=== PATIENT | male | born 1940 | race Caucasian/White ===

== ENCOUNTER → 2020-11-15 08:41 | Outpatient (REF) | payer MEDICARE, SELFPAY ==
--- NOTE | ~2020-11-15 | NM_ITS ---
Exercise Myocardial perfusion study Indication: Shortness of breath evaluate for myocardial ischemia Technique: The patient was brought in for an exercise perfusion study on 11/15/2020. Patient performed exercise as per Feng protocol and was injected 35 mCi of sestamibi was given intravenously one target HR was achieved. Images were obtained using the SPECT gamma camera interlaced with the gating device. Images were obtained in supine position. Resting perfusion study was performed on 11/16/2020. Patient was administered 35 mCi of sestamibi intravenously at rest. Images were then obtained in supine position. Images obtained with and without CT attenuation. Total DLP 105mGy-cm. Images were processed with the software and compared side to side in short axis, horizontal long axis and vertical long axis views. Findings: The stress perfusion study showed nonattenuated images show mildly reduced uptake in the inferior and apical wall of the LV myocardium. Also mildly reduced uptake in the basal inferolateral wall of the LV myocardium remainder of the LV myocardium is normally perfused. Moderately reduced uptake in the apex of the LV myocardium.. The gated study shows normal LV systolic function with calculated LVEF of 50%. LV cavity is mildly dilated in size. The gated study shows normal systolic wall thickening and contraction of all segments. There is no transient ischemic dilation. Resting study shows no change in perfusion pattern compared to stress perfusion study. Gating at rest reveals normal systolic wall motion with ejection fraction at 50%. The findings are consistent with no reversible defect suggestive of ischemia.. NM/NM katarina perf SPECT rest & str Impression: 1. Normal myocardial perfusion 2. Gated LVEF is 50% 3. Transient ischemic dilatation not present Stress EKG is negative for ischemia
--- NOTE | 2020-11-15 08:48 | CA_ITS ---
Acquisition Time: 2020-11-15 09:04:21 Total Exercise Time: 00:06:33 Test Indications: SOB, PVC'S Medications: SEE CHART Protocol: HERNESTO Max HR: 126 BPM 90% of Pred: 140 BPM Max BP: 148/080 mmHG Max Work Load: 7.8 METS Exercise stress test with exercise 6 min 33 sec of Hernesto protocol, with mild sob, no chest discomfort or dizziness, with frequent isolated PVCs ( 2 morphologies), occassional ventricular cuplets, with mild drop in BP with exercise baseline BP 146/78, stage one 134/78, stage two 126/80, immediate recovery 124/89, 3 min recovery 130/80), without EKG changes meeting criteria for ischemia. Nuclear images pending. Test reviewed with Dr Mallory. Referred By: Elian Rader Overread By: JESUS ALBERTO CANDELARIO
== END ==
LOC: HO.CARD 08:41
PROVIDERS: Visit Provider Physician Assistant Medical
DX: R06.02 Shortness of breath (principal)
CPT/HCPCS: 78452; 93017; A9500

== ENCOUNTER 2020-12-01 11:15 | Outpatient (REF) | payer MEDICARE, SELFPAY ==
--- NOTE | ~2020-12-01 | CT_ITS ---
EXAMINATION: CT CHEST WITHOUT CONTRAST CLINICAL INFORMATION: Dilated ascending aorta. COMPARISON: None. TECHNIQUE: Multidetector volumetric CT imaging of the chest was done. Axial MIP volume rendering provided. Sagittal and coronal reformatted images were obtained. This CT examination was performed using dose optimization techniques as appropriate, variously including the following: *Automated exposure control *Adjustment of mA and/or kV according to patient size (this includes techniques or standardized protocols for targeted exams where dose is matched to indication/reason for exam; i.e. extremities or head) *Use of iterative reconstruction technique DLP: 215 mGy-cm. FINDINGS: DIRECTOR OF SUSTAINABILITY: Emphysematous. LUNGS: There is a 2 mm nodule right upper lobe axial image 142/4, subpleural right upper lobe 1 mm nodule axial image 148/4 noncalcified, subpleural, a 3 mm nodule in the lingula axial image 342/4, a 6 mm linear subpleural nodule right middle lobe axial image 386/4, likely focal atelectasis or interstitial thickening. MEDIASTINUM: The thyroid lobes are symmetrical and normal. The central trachea and the bronchi widely patent. Heart size is normal. The thoracic aorta is of normal caliber. There are coronary artery calcifications. No pericardial effusion seen. No abnormal-sized mediastinal lymph nodes or mass. PLEURA: There is no pleural effusion. No pleural mass or thickening. AXILLA: No lymphadenopathy. UPPER ABDOMEN: Visualized liver, spleen, bilateral adrenal glands appear unremarkable. There is a moderate-sized 3.7 cm cyst upper pole left kidney. OSSEOUS STRUCTURES: There is no lytic or sclerotic process seen. There is a calcified disc at the T7-T8 disc level. CT/CT chest wo con IMPRESSION: No evidence of aortic aneurysm. There are coronary artery calcifications present. Small 3 mm lung nodules. Recommend 1-year follow-up.
== END 2020-12-01 11:16 | disposition home or self-care (01) ==
LOC: HO.CT 11:15
PROVIDERS: Visit Provider Physician Assistant Medical
DX: I77.810 Thoracic aortic ectasia (principal); I25.10 Atherosclerotic heart disease of native coronary artery without angina pectoris
CPT/HCPCS: 71250

== ENCOUNTER → 2021-01-18 09:44 | Outpatient (BNVA) | payer MEDICARE, SELFPAY | PROVIDERS: PCP Internal Medicine Geriatric Medicine; Visit Provider Urology | DX: N40.1 Benign prostatic hyperplasia with lower urinary tract symptoms (principal); R33.8 Other retention of urine; R31.29 Other microscopic hematuria | CPT/HCPCS: 51798; 99212 ==

== ENCOUNTER 2022-01-15 10:17 | Outpatient (REF) | payer MEDICARE, SELFPAY ==
[2022-01-15 11:39] LABS: Prostate Specific Antigen 3.68 ng/mL (<0.05-4.0)
== END 2022-01-15 10:18 | disposition home or self-care (01) ==
LOC: HO.LAB 10:17
PROVIDERS: PCP Internal Medicine Geriatric Medicine; Visit Provider Urology
DX: Z12.5 Encounter for screening for malignant neoplasm of prostate (principal); R33.9 Retention of urine, unspecified; N40.1 Benign prostatic hyperplasia with lower urinary tract symptoms; N13.8 Other obstructive and reflux uropathy
CPT/HCPCS: 36415; 84153

== ENCOUNTER → 2022-01-18 11:14 | Outpatient (BNVA) | payer MEDICARE, SELFPAY | PROVIDERS: PCP Internal Medicine Geriatric Medicine; Visit Provider Urology | DX: N40.1 Benign prostatic hyperplasia with lower urinary tract symptoms (principal); R33.9 Retention of urine, unspecified; R31.29 Other microscopic hematuria | CPT/HCPCS: Q3014 ==

== ENCOUNTER 2022-10-04 08:00 | Outpatient (REF) | payer MEDICARE, SELFPAY ==
[2022-10-04 12:59] LABS: TSH reflex Free T4 1.32 uIU/mL (0.32-4.0)
== END 2022-10-04 08:01 | disposition home or self-care (01) ==
LOC: HO.HHCL 08:00
PROVIDERS: Visit Provider Internal Medicine Geriatric Medicine
DX: R53.83 Other fatigue (principal); G72.0 Drug-induced myopathy; T46.6X5A Adverse effect of antihyperlipidemic and antiarteriosclerotic drugs, initial encounter
CPT/HCPCS: 36415; 82306; 82550; 84443

== ENCOUNTER 2023-01-15 09:52 | Outpatient (REF) | payer MEDICARE, SELFPAY ==
[2023-01-15 12:31] LABS: Prostate Specific Antigen 1.99 ng/mL (<0.05-4.0)
== END 2023-01-15 09:53 | disposition home or self-care (01) ==
LOC: HO.WFDLDS 09:52
PROVIDERS: Visit Provider Urology
DX: Z12.5 Encounter for screening for malignant neoplasm of prostate (principal); N40.0 Benign prostatic hyperplasia without lower urinary tract symptoms
CPT/HCPCS: 36415; 84153

== ENCOUNTER 2023-01-18 11:38 | Outpatient (AMB) | payer MEDICARE, SELFPAY ==
--- NOTE | 2023-01-18 11:38 | A.OFFVIS_ITS ---
Intake Intake Visit Reasons: 1Y PSA(set) Intake Note: Patient is Present for Telephone Follow Up PSA Urology Med: Finasteride, Antibiotic Allergy: None Blood Thinner: Aspirin Allergies No Known Allergies Allergy (Verified 01/18/23 11:39) Medication List - Last Reconciled 01/18/23 by Francis Lyons MD amoxicillin-pot clavulanate 875-125 mg 1 tab PO Q12H 10 days aspirin 81 mg PO DAILY atorvastatin 40 mg PO DAILY ciprofloxacin-dexamethasone 0.3-0.1 % (Ciprodex) 4 drps otic (ears) Q12H 7 days erythromycin 0.5 inches ophthalmic (eye) BID 7 days finasteride 5 mg PO DAILY 90 days lisinopril 40 mg PO DAILY omega-3 fatty acids (Fish Oil Concentrate) 1,000 mg PO DAILY omeprazole 20 mg PO DAILY prednisone 40 mg (2 x 20 mg) PO DAILY 7 days valacyclovir 1,000 mg PO Q8H 7 days verapamil ER 240 mg PO DAILY HPI HPI Comments History of Present Illness Details Alvin PATEL is a very pleasant male. He is a patient of Dr Cramer. He is seen today for the following urologic conditions. - lower urinary tract symptoms - microscopic hematuria Telemedicine Evaluation 15 min Consultation [employer] attempted PSA dropped when back on finasteride daily Urination improved with nocturia 1-2 times Good emptying Twelve month follow-up Lower Urinary Tract Symptoms:? Urinary parameters stable Had stopped finasteride Low PVR ? Current visit is for?further evaluation of, lower urinary tract symptoms, predominate obstructive symptoms.? Current treatment includes?5-AR.? Prostate Symptom Score?07/26 , Mild (0-8), Bother 3.? Symptoms include?07/26 , nocturia (>2), weak stream, and are improving.? Results from testing include? renal/bladder us ?Yes ? date ?08/15/2017 ? prostate size ?85 ? PSA?07/27 1.8, 01/30 3.7, 01/31 2.0 ? Prostate volume?- KAROLYN 3+ soft ? Testing at next visit will include?PSA Microscopic Hematuria:? Microscopic hematuria was diagnosed during?routine UA.? No evidence on UA today ? Since the last visit the patient has?has not noticed gross hematuria, does not test positive for microscopic hematuria.? Relevant medical history for?no pertinent medical history, no workplace exposures, tobacco use.? Associated symptoms include? dysuria ?No ? frequency ?No ? urgency ?No ? decreased urinary stream ?No ? pain ?No ? nausea ?No ? weight loss ?No ? Radiographic imaging:?04/28 , US renal right renal cyst, prostate 85cc.? Other investigations?04/28 , cytology, normal.? Cystoscopy findings?04/28 BPH with neovascularity.? Therapeutic plan?follow in 12 months with appropriate investigations PFSH Medical History BPH (benign prostatic hyperplasia) Hyperlipidemia Sleep apnea HTN (hypertension) Family History Mother Diabetes Social History Household Members: Spouse and Children Housing: House Alcohol intake: former Patient Tobacco Use Status: Never used Tobacco service: No Current occupational status: retired Review of Systems Const All systems reviewed & are unremarkable except as noted in HPI and below Reports no additional complaints Resp Reports no additional complaints GI Reports no additional complaints Reports as per HPI Musc Reports no additional complaints Physical Exam Telemedicine evaluation Appropriate responses Regular breathing rate and rhythm HEENT Head: Yes normal to inspection Ears: hearing grossly normal bilaterally Eyes General: appearance normal, both eyes and all related structures Neck Neck: Yes normal visual inspection Chest Chest palpation & inspection: normal inspection of the chest Resp Effort & Inspection: normal respiratory effort and able to speak in complete sentences Assessment & Plan Assessment & Plan (1) Microscopic hematuria: Code(s): R31.29 - Other microscopic hematuria (2) Incomplete emptying of bladder due to benign prostatic hyperplasia: Code(s): N40.1 - Benign prostatic hyperplasia with lower urinary tract symptoms; R33.9 - Retention of urine, unspecified (3) BPH (benign prostatic hyperplasia): Code(s): N40.0 - Benign prostatic hyperplasia without lower urinary tract symptoms Plan Twelve month follow-up Orders: Orders Prostate Specific Antigen 01/15/23 N40.0 - Benign prostatic hyperplasia without lower urinary tract symptoms Prostate Specific Antigen 364 Days N40.0 - Benign prostatic hyperplasia without lower urinary tract symptoms Medications: Refilled finasteride 5 mg PO DAILY 90 tabs 3RF 90 days N40.0 - Benign prostatic hyperplasia without lower urinary tract symptoms Patient Instructions: Imaging studies, laboratory and physical exam results were discussed and reviewed in detail. No major barriers to patient understanding were identified. An opportunity to ask questions regarding the treatment plan was provided. All questions were answered. The patient expressed understanding and agreement with the above treatment plan. The patient is aware they should contact our office by phone for worsening of their current condition or the appearance of new urologic symptoms. Compliance is encouraged with any medications and followup testing that is ordered. It is a privilege to participate in the urologic care of your patient. If you have any questions or concerns regarding treatment for the above conditions, or other urologic issues, please do not hesitate to contact me. The office telephone contact is [phone]. This note is constructed using voice recognition software. While every effort has been made to ensure accuracy security strategist errors may have been included. Yours sincerely, Dr Francis Lyons MD, [facility] - Urology Providers of Expert, Compassionate Care for the Genitourinary System Telehealth Telehealth Location of provider rendering services: practice address Location of patient: address on file Patient Identification confirmed using: Name, : Yes Telehealth method: video Patient verbally consented to treatment: Yes Patient verbally consented to billing insurance company: Yes Patient informed of any privacy concerns related to visit: Yes Coding Level of Care Code Tele Est Pt Level 4 (59540) Diagnoses Microscopic hematuria R31.29 Incomplete emptying of bladder due to benign prostatic hyperplasia N40.1; R33.9 BPH (benign prostatic hyperplasia) N40.0
== END 2023-01-18 12:25 ==
LOC: HO.HUSH 11:38
PROVIDERS: PCP Internal Medicine Geriatric Medicine; Visit Provider Urology
DX: R31.29 Other microscopic hematuria (principal); N40.1 Benign prostatic hyperplasia with lower urinary tract symptoms; R33.9 Retention of urine, unspecified; N40.0 Benign prostatic hyperplasia without lower urinary tract symptoms
CPT/HCPCS: 99214

== ENCOUNTER → 2023-01-18 11:38 | Outpatient (BNVA) | payer MEDICARE, SELFPAY | PROVIDERS: PCP Internal Medicine Geriatric Medicine; Visit Provider Urology | DX: N40.0 Benign prostatic hyperplasia without lower urinary tract symptoms (principal) ==

== ENCOUNTER 2023-04-29 09:33 | Outpatient (REF) | payer MEDICARE, SELFPAY ==
[2023-04-29 11:00] LABS: MANUAL DIFF FLAG NO
[2023-04-29 11:11] LABS: Basophils Percent Auto 0.6 % (0-2); Eosinophils Absolute Auto 0.2 X10*3/uL (0.0-0.4); Eosinophils Percent Auto 3.9 % (0-4); Hematocrit 44.7 % (42.0-52.0); Hemoglobin 15.4 g/dl (14.0-18.0); Imm Gran Abs Auto 0.01 X10*3/uL (0.00-0.03); Imm Gran Pct Auto 0.2 % (0.0-0.4); Lymphocytes Absolute Auto 2.6 X10*3/uL (1.2-4.9); Lymphocytes Percent Auto 53.8 % (20-40); Mean Corpuscular HGB Conc 34.5 g/dl (31.0-36.0); Mean Corpuscular Hemoglobin 30.8 pg (27.0-33.0); Mean Corpuscular Volume 89.4 fL (80.0-98.0); Mean Platelet Volume 9.6 fL (9.4-12.4); Monocytes Absolute Auto 0.4 X10*3/uL (0.1-1.2); Monocytes Percent Auto 7.2 % (2-11); Neutrophils Absolute Auto 1.7 x10*3/uL (2.0-8.3); Neutrophils Percent Auto 34.3 % (45-73); Platelet Count 147 X10*3/uL (160-400); Red Cell Distribution Width 12.9 % (11.0-16.0); White Blood Count 4.9 X10*3/uL (4.8-10.8)
[2023-04-29 11:47] LABS: Alanine Aminotransferase 16 U/L (0-40); Albumin Level 3.8 g/dL (3.5-5.0); Alkaline Phosphatase 46 U/L (39-117); Anion Gap 11 (12-20); Aspartate Amino Transferase 18 U/L (5-37); Bilirubin Total 0.8 mg/dL (0.0-1.0); Blood Urea Nitrogen 24 mg/dL (9-16); Calcium 9.3 mg/dL (8.4-10.2); Carbon Dioxide 27 mmol/L (22-29); Chloride 106 mmol/L (96-108); Cholesterol 134 mg/dL (<200); Estimated Glomerular Filt Rate > 60; Glucose Random 107 mg/dL (60-115); HDL Cholesterol 31 mg/dL (>40); LDL Cholesterol Calculated 67 mg/dL (<100); Potassium 3.9 mmol/L (3.3-5.1); Sodium 140 mmol/L (135-145); Total Protein 6.9 g/dL (6.5-8.0); Triglycerides 181 mg/dL (<150)
== END 2023-04-29 09:34 | disposition home or self-care (01) ==
LOC: HO.WFDLDS 09:33
PROVIDERS: Visit Provider Internal Medicine Geriatric Medicine
DX: I25.118 Atherosclerotic heart disease of native coronary artery with other forms of angina pectoris (principal); I10 Essential (primary) hypertension
CPT/HCPCS: 36415; 80053; 80061; 85025

== ENCOUNTER 2025-02-22 09:55 | Outpatient (REF) | payer MEDICARE, SELFPAY ==
[2025-02-22 11:10] LABS: MANUAL DIFF FLAG NO
[2025-02-22 11:22] LABS: Hematocrit 44.6 % (42.0-52.0); Hemoglobin 14.8 g/dl (14.0-18.0); Imm Gran Abs Auto 0.01 X10*3/uL (0.00-0.03); Imm Gran Pct Auto 0.2 % (0.0-0.4); Lymphocytes Absolute Auto 2.0 X10*3/uL (1.2-4.9); Mean Corpuscular HGB Conc 33.2 g/dl (31.0-36.0); Mean Corpuscular Hemoglobin 30.8 pg (27.0-33.0); Mean Corpuscular Volume 92.9 fL (80.0-98.0); NRBC Abs Auto 0.000 X10*3/uL (0.0-0.012); NRBC Pct Auto 0.0 /100WBC (0.0-0.2); Platelet Count 165 X10*3/uL (160-400); Red Blood Count 4.80 X10*6/uL (4.60-5.80); White Blood Count 4.3 X10*3/uL (4.8-10.8)
[2025-02-22 11:37] LABS: Alanine Aminotransferase 23 U/L (0-40); Albumin Level 4.3 g/dL (3.5-5.0); Alkaline Phosphatase 59 U/L (39-117); Anion Gap 10 (12-20); Aspartate Amino Transferase 28 U/L (5-37); Blood Urea Nitrogen 19 mg/dL (9-16); Calcium 9.6 mg/dL (8.4-10.2); Carbon Dioxide 27 mmol/L (22-29); Chloride 105 mmol/L (96-108); Estimated Glomerular Filt Rate > 60; Potassium 3.8 mmol/L (3.3-5.1); Sodium 138 mmol/L (135-145); Total Protein 7.2 g/dL (6.5-8.0)
== END 2025-02-22 09:56 | disposition home or self-care (01) ==
LOC: HO.HHCL 09:55
PROVIDERS: PCP Internal Medicine Geriatric Medicine; Visit Provider Nurse Practitioner Family
DX: R10.13 Epigastric pain (principal)
CPT/HCPCS: 36415; 80053; 85025

== ENCOUNTER 2025-03-08 09:25 | Outpatient (REF) | payer MEDICARE, SELFPAY ==
--- NOTE | ~2025-03-08 | US_ITS ---
CLINICAL HISTORY: abdominal pain post prandial US abdomen complete Comparison: None provided Findings: The visualized pancreas head is normal. The visualized aorta and inferior vena cava are normal caliber. The liver is normal in size, right lobe length is 16.5 cm. Normal in echogenicity, no discrete lesion is visualized in the imaged liver. No intrahepatic bile duct dilatation. The common duct is 5 mm in diameter. The gallbladder is normal. Negative sonographic Yap sign. The main portal vein is patent with antegrade flow. T bilateral kidneys are normal in size and echogenicity, no cortical thinning, right kidney measures 11.7 cm in length, left kidney 12.6 cm in length. No hydronephrosis or calculus. Bilateral benign renal cysts, 9 mm in the right midpole, 2.5 cm in the left midpole, large lobulated parapelvic cyst left upper interpolar region 9.7 x 4.1 x 4.7 cm, additional smaller cysts 1.2 cm and 0.6 cm in the upper pole. The spleen is normal, 10.3 cm in length. No free fluid in the abdomen. Impression: Bilateral renal benign cysts. This document has been electronically signed by: Mulu Guillen MD on 03/09/2025 16:47:06
--- OUTSIDE RECORDS SUMMARY | 2025-03-08 09:54 | XMS_ITS | Encounter Summary ---
Author Organization [employer] Address [address] [facility] [address] [address] [place] [address] Care Team Providers Care Pressure Vessel Inspector Name Role Phone Name, Basim BOWEN Primary Care Provider [phone] Reason for Visit * Reason Onset Date Comments Med Refill 11/15/2023 Encounter Details Date Type Department Care Team ([facility] st Contact Info) Description 11/15/2023 Telephone [facility] [address] [place] [address] Name, MD Basim [address] [place] [address] Med Refill Social History Tobacco Use Types Packs/Day Years Used Date Smoking Tobacco: Never Smokeless Tobacco: Never Alcohol Use Standard Drinks/Week Comments Never 0 (1 standard drink = 0.6 oz pur e alcohol) Depression Answer Date Recorded Patient Health Questionnaire-9 Score 0 04/24/2023 Patient Health Questionnaire-9 Score 0 04/24/2023 Last PHQ-9: Questionnaire Data Not on file 0 04/24/2023 Housing Stability Answer Date Recorded What is your housing situation today? I have carito morillo 07/17/[address] you li ve. Do you have problems with any of the following? None of the above 07/17/2023 Food Insecurity Answer Date Recorded Within the past 12 months, y ou worried that your food would run out before you got money to buy more: Never True 07/17/2023 Within the past 12 months,th e food you bought just didn't last and you didn't have enough money to get more: Never True 10/2023 Transportation Answer Date Recorded In the past 12 months, has l ack of transportation kept you from medical appts, meetings, work or from getting things needed for daily living? No 07/17/2023 Utilities Answer Date Recorded In the past 12 months, has t he electric, gas, oil or water company threatened to shut off services in your home? No 07/17/2023 Depression Answer Date Recorded Patient Health Questionnaire-2 Score 0 04/24/2023 Sex and Gender Information Value Date Recorded Sex Assigned at Male 01/08/2022 10:30 AM EDT Legal Sex Male 10:30 AM EDT Gender Identity Male 01/08/2022 10:30 AM EDT Sexual Orientation Straight 01/08/2022 10 :30 AM EDT documented as of this encounter Miscellaneous Notes * Telephone Encounter - Davy Freitas - 11/20/2023 8:38 AM EDT Tc from patient calling in regards to message below states was told by pharmacy there was no refills * Telephone Encounter - Rosa M Bonilla LPN - 11/15/2023 4:18 PM EDT Medication was sent to [id number] on 10/11/23 #90 with 3 refills. * Telephone Encounter - Rick Obrien - 11/15/2023 4:16 PM EDT TC from pt requesting medication refill. Medications needing refill: lisinopril 40 MG tablet To be sent to: [id number] - [place], [place] - [address] documented in this encounter Plan of Treatment Upcoming Encounters Date Type Department Care Team (Late st Contact Info) Description 03/18/2025 9:15 AM EST Office Visit [facility] [address] [place] [address] Name, MD Basim [address] [place] [address] documented as of this encounter Visit Diagnoses Not on filedocumented in this encounter Additional Health Concerns Assessment Noted Time PHQ-9 Depression Total Score: 0 04/24/19 24 9:09 AM EST documented as of this encounter Care Teams Pressure Vessel Inspector Relationship Specialty Start Date End Date Name, MD Basim [address] [place] [address] PCP - General Family Medicine 10/04/15 documented as of this encounter
--- OUTSIDE RECORDS SUMMARY | 2025-03-08 09:54 | XMS_ITS | Encounter Summary ---
Author Organization [employer] Address [address] [facility] [address] [place] [address] Care Team Providers Care Rubber Goods Inspector Name Role Phone Name, Basim BOWEN Primary Care Provider [phone] Encounter Details Date Type Department Care Team (Latest Contact Info) Description 03/06/2025 Results Follow-Up [facility] [address] [place], [place] [phone] Raeann Shoemaker NP [address] [place], [place] [phone] CBC auto differential, Comprehensive Metabolic Panel Social History Tobacco Use Types Packs/Day Years Used Date Smoking Tobacco: Never Smokeless Tobacco: Never Alcohol Use Standard Drinks/Week Comments Never 0 (1 standard drink = 0.6 oz pur e alcohol) Depression Answer Date Recorded Patient Health Questionnaire-9 Score 0 02/22/2025 Patient Health Questionnaire-9 Score 0 02/22/2025 Last PHQ-9: Questionnaire Data Not on file 1 04/25/2024 Housing Stability Answer Date Recorded What is your housing situation today? I have carito morillo 02/22/[address] you li ve. Do you have problems with any of the following? None of the above 02/22/2025 Food Insecurity Answer Date Recorded Within the past 12 months, y ou worried that your food would run out before you got money to buy more: Never True 02/22/2025 Within the past 12 months,th e food you bought just didn't last and you didn't have enough money to get more: Never True Transportation Answer Date Recorded In the past 12 months, has l ack of transportation kept you from medical appts, meetings, work or from getting things needed for daily living? No 02/22/2025 Utilities Answer Date Recorded In the past 12 months, has t he electric, gas, oil or water company threatened to shut off services in your home? No 02/22/2025 Depression Answer Date Recorded Patient Health Questionnaire-2 Score 0 02/22/2025 Internet Access Answer Date Recorded Internet Access Q1 Yes 02/22/2025 Internet Access Q2 Not on file 02/22/2025 Sex and Gender Information Value Date Recorded Sex Assigned at Male 01/08/2022 10:30 AM EDT Legal Sex Male 10:30 AM EDT Gender Identity Male 01/08/2022 10:30 AM EDT Sexual Orientation Straight 01/08/2022 10 :30 AM EDT documented as of this encounter Plan of Treatment Upcoming Encounters Date Type Department Care Team (Late st Contact Info) Description 03/18/2025 9:15 AM EST Office Visit [facility] [address] [place] [phone] Name, MD Basim [address] [place] [phone] documented as of this encounter Visit Diagnoses Not on filedocumented in this encounter Additional Health Concerns Assessment Noted Time PHQ-9 Depression Total Score: 0 02/23/20 25 9:43 AM EST documented as of this encounter Care Teams Rubber Goods Inspector Relationship Specialty Start Date End Date NameBasim MD [address] [place] [phone] PCP - General Family Medicine 10/04/15 documented as of this encounter
--- OUTSIDE RECORDS SUMMARY | 2025-03-08 09:54 | XMS_ITS | Encounter Summary ---
Author Organization [employer] [facility] Address [address] [place] [address] 7 [place] [address] Care Team Providers [employer] Solutions Market Consultant Name Role Phone Name, Basim BOWEN Primary Care Provider [phone] Encounter Details Date Type Department Care Team (Late st Contact Info) Description 02/05/2022 Abstract [facility] [address] [place] [phone] Provider, MD Jaquelin Social History Tobacco Use Types Packs/Day Years Used Date Smoking Tobacco: Never Assessed Sex and Gender Information Value Date Recorded Sex Assigned at Male 01/08/2022 10:30 AM EDT Legal Sex Male 10:30 AM EDT Gender Identity Male 01/08/2022 10:30 AM EDT Sexual Orientation Straight 01/08/2022 10 :30 AM EDT documented as of this encounter Plan of Treatment Upcoming Encounters Date Type Department Care Team (Late st Contact Info) Description 03/18/2025 9:15 AM EST Office Visit [address] [phone] NameBasim MD [address] [place] [phone] documented as of this encounter Visit Diagnoses Not on filedocumented in this encounter Care Teams Solutions Market Consultant Relationship Specialty Start Date End Date Basim Cramer MD [address] [place] [phone] PCP - General Family Medicine 10/04/15 documented as of this encounter
--- OUTSIDE RECORDS SUMMARY | 2025-03-08 09:54 | XMS_ITS | Encounter Summary ---
Author Organization [employer] Address [address] [facility] [address] [place] [address] Care Team Providers Care Interventional Neuroradiologist Name Role Phone Name, Basim BOWEN Primary Care Provider [phone] Reason for Visit * Reason Onset Date Comments Appointment Request 12/28/2024 Encounter Details Date Type Department Care Team ([facility] st Contact Info) Description 12/28/2024 Telephone [facility] [address] [place], [place] [phone] Name, MD Basim [address] [place] [address] Appointment Request Social History Tobacco Use Types Packs/Day Years [...] encounter Miscellaneous Notes * Telephone Encounter - Rick Obrien - 12/28/2024 3:23 PM EDT Tc from pt requesting a call back stating pcp was supposed to schedule a 6 month follow up always attends them and their partner together. Please contact pt at [phone]. (Micronesian Speaker) pt 1/2 documented in this encounter Plan of Treatment Upcoming Encounters Date Type Department Care Team (Late st Contact Info) Description 03/18/2025 9:15 AM EST Office Visit [facility] [address] [place] [phone] Name, MD Basim [address] [place] [address] documented as of this encounter Visit Diagnoses Not on filedocumented in this encounter Additional Health Concerns Assessment Noted Time PHQ-9 Depression Total Score: 0 04/24/19 24 9:09 AM EST documented as of this encounter Care Teams Interventional Neuroradiologist Relationship Specialty Start Date End Date Name, MD Basim [address] [place] [phone] PCP - General Family Medicine 10/04/15 documented as of this encounter
--- OUTSIDE RECORDS SUMMARY | 2025-03-08 09:54 | XMS_ITS | Clinical Summary ---
Author Organization [employer] Address [address] [facility] 7t [place] [address] Care Team Providers Care Linux Devops Engineer Name Role Phone Name, Basim BOWEN Primary Care Provider [phone] Allergies No known active allergies Medications cholecalciferol (Vitamin D-3) 25 MCG (1000 UT) capsule Take 25 mcg by mouth 1 (one) time each day. Active omega-3 (Fish Oil) 1000 MG capsule Take 1,000 mg by mouth. Active zoster vaccine-recombin ant adjuvanted (Shingrix) 50 MCG/0.5ML vaccine Inject 0.5 mL into the shoulder, thigh, or buttocks. 1 Active sildenafil (Viagra) 50 MG tablet Take 1 tablet (50 mg) by mouth if needed each day for erectile dysfunction. 10 tablet 3 Active atorvastatin (Lipitor) 40 MG tabletIndication s:Hypertriglycer idemia Take 1 tablet (40 mg) by mouth Once per day. 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 15 tablet 3 5 02/04/20 Active famotidine (Pepcid) 20 MG tablet Take 1 tablet (20 mg) by mouth 2 times daily. 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 Hypertension 05/27/2009 Hypertriglyceridemia 05/27/2009 Resolved Problems Problem Noted Date Diagnosed Date Resolved Date Groin rash 01/27/2022 04/24/2023 Prostatism 07/06/2020 04/24/2023 Dysuria 04/03/2017 04/24/2023 Microscopic hematuria 04/03/20172023 Abnormal stress ECG 05/24/2014 04/24/19 24 Encounters Date Type Department Care Team Description 03/06/2025 Results Follow-Up [facility] [place] [address] Raeann Shoemaker NP CBC auto differential, Comprehensive Metabolic Panel 02/25/2025 9:30 AM EST Office Visit [facility] [place] [address] Almaz Quintero MD Left hip pain (Primary Dx) 02/22/2025 10:00 AM EST Office Visit [facility] [place] [address] Almaz Quintero MD Left hip pain (Primary Dx) 02/22/2025 9:30 AM EST Office Visit [facility] [place] [address] Raeann Shoemaker NP Nausea (Primary Dx); Epigastric pain 02/22/2025 Refill [facility] [place] [address] Raeann Shoemaker NP 02/22/2025 Travel 02/19/2025 Telephone [facility] [place] [address] Basim Cramer MD CHARTPREP 02/09/2025 Telephone [facility] [place] [address] Basim Cramer MD Referral 02/03/2025 Refill [facility] [place] [address] Basim Cramer MD 01/13/2025 Refill [facility] [address] [place] [address] NameBasim MD 12/28/2024 Telephone [facility] [address] [place] [address] NameBasim MD SCHEDULING 12/28/2024 Telephone [facility] [address] [place] [address] Basim Cramer MD Appointment Request 12/23/2024 Refill [facility] [address] [place] [address] NameBasim MD Hypertriglyceridemia from Last 3 Months Immunizations Immunization Administration Dates Next Due Influenza High-dose Quadriva lent Preservative Free 12/28/2022,12/11/2021,12/06/2020,12/30 Influenza, High Dose Seasona l, Preservative Free 01/15/2024,01/22/2018 Influenza, IIV3, injectable 12/06/2020, 0,01/22/2018 Pfizer Covid-19 Vaccine 12+ 01/15/2024,1 ,05/11/2020,04/20 Pfizer Covid-19 Vaccine 12+ Bivalent 02/23/2022 Pneumococcal Conjugate PCV 13 12/31/2016 Pneumococcal Polysaccharide PPSV23 07/04/2009 TD (adult), 2 Lf tetanus tox oid, preservative free, adsorbed 07/04/2009 Td (adult) 07/04/2009 Td (adult), unspecified 07/04/2009 Tdap 12/20/2020 Social History Tobacco Use Types Packs/Day Years Used Date Smoking Tobacco: Never Smokeless Tobacco: Never Tobacco Cessation:Counseling Given: Not Answered Alcohol Use Standard Drinks/Week Comments Never 0 [...] Orientation Straight 01/08/2022 10 :30 AM EDT Last Filed Vital Signs Vital Sign Reading Time Taken Comments Blood Pressure 124/72 02/22/2025 9:32 AM EST Pulse 57 02/22/2025 9:32 AM EST Temperature 36.2 C (97.1 F) 02/22/2025 9:32 AM EST Respiratory Rate 20 02/22/2025 9:32 AM EST Oxygen Saturation 90% 07/03/2024 3:47 PM EDT Inhaled Oxygen Concentration - - Weight 102 kg (224 lb 12.8 oz) 02/22/2025 9:32 A M EST Height 172.7 cm (5' 8 ) 02/22/2025 9:32 AM EST Body Mass Index 34.18 02/22/2025 9:32 AM EST Plan of Treatment Upcoming Encounters Date Type Department Care Team (Late st Contact Info) Description 03/18/2025 9:15 AM EST Office Visit [facility] [address] [place] [phone] Name, MD Basim [address] [place] [address] Health Maintenance Due Date Last Done Comments Dental Prophylaxis 1940 Dental X-Ray: Bitewings 1940 Zoster Vaccines (1 of 2) 1990 RSV Patients and Patients Aged 60 years or older (1 - 1-dose 75+ series) 08/05/2015 Dental Oral Exam 08/22/2023 02/19/2023 COVID-19 Vaccine ( season) 2024 01/15/2024, 02/23/2022, 12/09/2020, Additional history exists Influenza Vaccine (#1) 2024 , 12/28/2022, 12/11/2021, Additional history exists Alcohol/Substance Use Screening 02/22/2026 02/22/2025 Depression Screening 02/22/2026 02/22/2025, 02/23/20 25 SDOH Screening 02/22/2026 02/22/2025 Tobacco Screening 02/22/2026 02/22/2025 Dental X-Ray: Full Mouth 04/09/2026 04/08/2023 Lipid Panel 04/29/2028 04/29/2023, 04/0 08/2022, 07/25/2020, Additional history exists DTaP/Tdap/Td Vaccines (2 - Td or Tdap) 12/20/2030 12/20/2020, 07/04/2009, 07/04/2009, Additional history exists Pneumococcal Vaccine: 50+ Years Completed 12/31/2016, 07/04/2009 HIB Vaccines Aged Out No longer eligi ble based on patient's age to complete this topic HPV Vaccines Aged Out No longer eligi ble based on patient's age to complete this topic Hepatitis A Vaccines Aged Out No long er eligible based on patient's age to complete this topic Hepatitis B Vaccines Aged Out No long er eligible based on patient's age to complete this topic IPV Vaccines Aged Out No longer eligi ble based on patient's age to complete this topic Meningococcal B Vaccine Aged Out No l onger eligible based on patient's age to complete this topic Meningococcal Vaccine Aged Out No monet paul eligible based on patient's age to complete this topic RSV under 20 months Aged Out No longe r eligible based on patient's age to complete this topic Rotavirus Vaccines Aged Out No longer eligible based on patient's age to complete this topic Procedures Procedure Name Priority Date/Time Associated Diagnosis Comments COMPREHENSIVE METABOLIC PANEL Routine 02/22/2025 9:59 AM EST Epigastric pain CBC WITH AUTO DIFFERENTIAL Routine 02/22/2025 9:59 AM EST Epigastric pain LIPID PANEL, STANDARD Routine 04/29/2023 9:37 AM EST Hypertension, unspecified type 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 ([facility]) PANORAMIC RADIOGRAPHIC IMAGE Routine 04/08/2023 11:00 AM EST COMPREHENSIVE ORAL EVALUATION - NEW OR ESTABLISHED PATIENT Routine 02/19/2023 3:00 PM EST from Last 3 Months or Most Recently Relevant to Health Maintenance Results * (ABNORMAL) CBC auto differential (02/22/2025 9:59 AM EST) White Blood Count 4.3(L) 4.8 - 10.8 X10*3/uL [facility] Red Blood Count 4.80 4.60 - 5.80 X10*6/uL [facility] Hemoglobin 14.8 14.0 - 18.0 g/dl [facility] Hematocrit 44.6 42.0 - 52.0 % [facility] Mean Corpuscular Volume 92.9 80.0 - 98.0 fL [facility] Mean Corpuscular Hemoglobin 30.8 27.0 - 33.0 pg [facility] Mean Corpuscular HGB Conc 33.2 31.0 - 36.0 g/dl [facility] Red Cell Distribution Width 12.8 11.0 - 16.0 % [facility] Platelet Count 165 160 - 400 X10*3/uL [facility] Mean Platelet Volume 9.5 9.4 - 12.4 fL [facility] Neutrophils Percent Auto 43.4(L) 45 - 73 % [facility] Imm Gran Pct Auto 0.2 0.0 - 0.4 % [facility] Lymphocytes Percent Auto 46.2(H) 20 - 40 % [facility] Monocytes Percent Auto 6.7 2 - 11 % [facility] Eosinophils Percent Auto 3.0 0 - 4 % [facility] Basophils Percent Auto 0.5 0 - 2 % [facility] NRBC Pct Auto 0.0 0.0 - 0.2 /100WBC [facility] Neutrophils Absolute Auto 1.9(L) 2.0 - 8.3 x10*3/uL [facility] Imm Gran Abs Auto 0.01 0.00 - 0.03 X10*3/uL [facility] Lymphocytes Absolute Auto 2.0 1.2 - 4.9 X10*3/uL [facility] Monocytes Absolute Auto 0.3 0.1 - 1.2 X10*3/uL [facility] Eosinophils Absolute Auto 0.1 0.0 - 0.4 X10*3/uL [facility] Basophils Absolute Auto 0.0 0.0 - 0.2 X10*3/uL [facility] NRBC Abs Auto 0.000 0.0 - 0.012 X10*3/uL [facility] Blood Venous blood specimen / Unknown 02/22/2025 9:59 AM EST 02/22/2025 11:04 AM EST us Raeann Shoemaker NP LAB BLOOD ORDERABLES Final Resul t [facility] [address] [place], [place] [phone] * (ABNORMAL) Comprehensive Metabolic Panel (02/22/2025 9:59 AM EST) Sodium 138 135 - 145 mmol/L [facility] Potassium 3.8 3.3 - 5.1 mmol/L [facility] Chloride 105 96 - 108 mmol/L [facility] Carbon Dioxide 27 22 - 29 mmol/L [facility] Anion Gap 10(L) 12 - 20 [facility] Urea Nitrogen (BUN) 19(H) 9 - 16 mg/dL [facility] Creatinine, Serum 0.96 0.5 - 1.4 mg/dL [facility] Estimated Glomerular Filt Rate >60 [facility] Comment:Chronic Kidney Disea se: Estimated GFR < 60 mL/min/1.64x7Tptkch Kidney Disease: Estimated GFR < 15 mL/min/1.73m2 Glucose 189(H) 60 - 115 mg/dL [facility] Calcium 9.6 8.4 - 10.2 mg/dL [facility] Bilirubin, Total 0.6 0.0 - 1.0 mg/dL [facility] Aspartate Amino Transferase 28 5 - 37 U/L [facility] Alanine Aminotransferase 23 0 - 40 U/L [facility] Total Protein 7.2 6.5 - 8.0 g/dL [facility] Albumin Level 4.3 3.5 - 5.0 g/dL [facility] Alkaline Phosphatase 59 39 - 117 U/L [facility] Blood Venous blood specimen / Unknown 02/22/2025 9:59 AM EST 02/22/2025 11:04 AM EST us Raeann Shoemaker DIRECTOR OF STUDENT FINANCIAL SERVICES LAB BLOOD ORDERABLES Final Resul t [facility] [address] [place] [phone] * (ABNORMAL) Lipid Panel, Standard (04/29/2023 9:37 AM EST) Triglycerides 181(H) <150 mg/dL [facility] Comment:Desirable Triglyceri de: less than 150 mg/dLBorderline High Triglyceride 150-199 mg/dLHigh Triglyceride: 200-499 mg/dLVery High Triglyceride: greater than or equal to 5OO mg/dL Cholesterol 134 <200 mg/dL [facility] Comment:Desirable Cholestero l: less than 200 mg/dLBorderline High Cholesterol: 200-239 mg/dLHigh Cholesterol: greater than 239 mg/dL LDL Cholesterol Calculated 67 <100 mg/dL [facility] Comment:Desirable LDL: less than 100 mg/dLNear Optimal/Above Optimal LDL: 110- 129 mg/dLBorderline High LDL: 130-159 mg/dLHigh LDL: 160-189 mg/dLVery High LDL: greater than or equal to 190 mg/dL HDL Cholesterol 31(L) >40 mg/dL [facility] Comment:Desirable HDL: great er than 40 mg/dL Note: This HDL assay may give artificially low results in patients with liver disease. Blood Venous blood specimen / Unknown 04/29/2023 9:37 AM EST 04/29/2023 10:58 AM EST us Basim Name LAB BLOOD ORDERABLES Final Resul t [facility] [address] [place] [phone] from Last 3 Months or Most Recently Relevant to Health Maintenance Insurance [facility] MEDICARE ADVANTAGE HMO [facility] Care Teams Linux Devops Engineer Relationship Specialty Start Date End Date Name, MD Basim [address] [place] [phone] PCP - General Family Medicine 10/04/15
--- OUTSIDE RECORDS SUMMARY | 2025-03-08 09:54 | XMS_ITS | Clinical Summary ---
Author Organization [facility] Address [address] [place], [place] [phone] Phone Care Team Providers Care Paramedic Name Role Phone Name, Basim BOWEN Primary Care Provider [phone] Social History Tobacco Use Types Packs/Day Years Used Date Smoking Tobacco: Never Assessed Education Answer Date Recorded Are you interested in more education? Not on rafat e 07/06/2022 Are you concerned about learning? Not on file 07/06/2022 No 07/06/2022 No 07/06/2022 Digital Access Answer Date Recorded No 08/06/2022 No 08/06/2022 No 08/06/2022 Reliable internet access at home? Not on file 08/06/2022 Device with a working camera? Not on file Sex and Gender Information Value Date Recorded Sex Assigned at Not on file Legal Sex Male 10:38 PM EDT Gender Identity Not on file Sexual Orientation Not on file Plan of Treatment Not on file Medical Devices Not on file Insurance [facility] MEDICARE REPLACEMENT [facility] MEDICARE [place] [address] [place] [address] [place] [address] [place] [address] [place] [address] MEDICARE REPLACEMENT [facility] MEDICARE REPLACEMENT [facility] MEDICARE REPLACEMENT [facility] MEDICARE REPLACEMENT Care Teams Paramedic Relationship Specialty Start Date End Date Name, MD Basim [address] [place] [phone] PCP - General 11/19/19 Additional Source Comments The information contained in this document represents components of the legal health record. It is not the complete legal health record.[facility]
--- OUTSIDE RECORDS SUMMARY | 2025-03-08 09:54 | XMS_ITS | Encounter Summary ---
Author Organization [employer] Address [address] [facility] [address] [place] [address] Care Team Providers Care Freight Elevator Operator Name Role Phone Name, Basim BOWEN Primary Care Provider [phone] Reason for Visit * Reason Comments Med Refill Encounter Details Date Type Department Care Team ([facility] st Contact Info) Description 12/23/2024 Refill [facility] [address] [place], [place] [phone] Name, MD Basim [address] [place] [address] Hypertriglyceridemia Social History Tobacco Use Types Packs/Day Years [...] Description 03/18/2025 9:15 AM EST Office Visit [facility] [address] [place] [phone] NameBasim MD [address] [place] [phone] documented as of this encounter Visit Diagnoses Diagnosis Hypertriglyceridemia Pure hyperglyceridemia documented in this encounter Additional Health Concerns Assessment Noted Time PHQ-9 Depression Total Score: 0 04/24/19 24 9:09 AM EST documented as of this encounter Care Teams Freight Elevator Operator Relationship Specialty Start Date End Date NameBasim MD [address] [place] [phone] PCP - General Family Medicine 10/04/15 documented as of this encounter
--- OUTSIDE RECORDS SUMMARY | 2025-03-08 09:54 | XMS_ITS | Encounter Summary ---
Author Organization [employer] Address [address] [facility] 7t [place] [address] Care Team Providers Care Operator Prefinish Name Role Phone Name, Basim BOWEN Primary Care Provider [phone] Reason for Visit * Reason Onset Date Comments Med Refill 02/20/2024 Encounter Details Date Type Department Care Team ([facility] st Contact Info) Description 02/20/2024 Telephone [facility] [address] [place], [place] [phone] Name, MD Basim [address] [place] [address] Med Refill Social History Tobacco Use Types [...] encounter Miscellaneous Notes * Telephone Encounter - Madelin Arevalo - 02/26/2024 12:14 PM EST Tc from pt requesting status on med refill request, Pt was inform about last 2 messages but pt states pharmacy does not have any refills. [employer] Carp[employer] M[employer] contact jose and was advices by a pharmacist that they never received script from 10/11/23. * Telephone Encounter - Rosa M Bonilla LPN - 02/20/2024 9:14 AM EST Medication sent to [id number] on 10/11/23 #90 with 3 refills. * Telephone Encounter - Rick Obrien - 02/20/2024 9:03 AM EST TC from pt requesting medication refill. Medications needing refill: atorvastatin (Lipitor) 40 MG tablet To be sent to: [id number] - [place] - [address] documented in this encounter Plan of Treatment Upcoming Encounters Date Type Department Care Team (Late st Contact Info) Description 03/18/2025 9:15 AM EST Office Visit [facility] [address] [place] [address] Name, MD Basim [address] [place] [address] documented as of this encounter Visit Diagnoses Not on filedocumented in this encounter Additional Health Concerns Assessment Noted Time PHQ-9 Depression Total Score: 0 04/24/19 24 9:09 AM EST documented as of this encounter Care Teams Operator Prefinish Relationship Specialty Start Date End Date Name, MD Basim [address] [place] [address] PCP - General Family Medicine 10/04/15 documented as of this encounter
--- OUTSIDE RECORDS SUMMARY | 2025-03-08 09:54 | XMS_ITS | Encounter Summary ---
Author Organization [employer] Address [address] [facility] [address] [place] [address] Care Team Providers Care Ferryboat Operator Helper Name Role Phone Name, Basim BOWEN Primary Care Provider [phone] Reason for Visit * Reason Comments Med Refill Encounter Details Date Type Department Care Team ([facility] Contact Info) Description 02/22/2025 Refill [facility] [address] [place], [place] [phone] Raeann Shoemaker NP [address] [place], [place] [phone] Social History Tobacco Use Types Packs/Day Years [...] Description 03/18/2025 9:15 AM EST Office Visit [facility] [address] [place] [phone] Name, MD Basim [address] [place] [phone] documented as of this encounter Visit Diagnoses Not on filedocumented in this encounter Additional Health Concerns Assessment Noted Time PHQ-9 Depression Total Score: 0 02/23/20 25 9:43 AM EST documented as of this encounter Care Teams Ferryboat Operator Helper Relationship Specialty Start Date End Date NameBasim MD [address] [place] [phone] PCP - General Family Medicine 10/04/15 documented as of this encounter
--- OUTSIDE RECORDS SUMMARY | 2025-03-08 09:54 | XMS_ITS | Encounter Summary ---
Author Organization [facility] Address [address] [facility] [address] [place] [address] Phone Care Team Providers Care Manufacturing Engineering Technologist Name Role Phone Name, Basim BOWEN Primary Care Provider [phone] Encounter Details Date Type Department Care Team (Late st Contact Info) Description 11/19/2019 Ancillary Orders [facility] at [address] [place] [address] Ez Santos, DO [address] [place] [address] Social History Tobacco Use Types Packs/Day Years Used Date Smoking Tobacco: Never Assessed Sex and Gender Information Value Date Recorded Sex Assigned at Not on file Legal Sex Male 10:38 PM EDT Gender Identity Not on file Sexual Orientation Not on file documented as of this encounter Plan of Treatment Not on file documented as of this encounter Visit Diagnoses Not on filedocumented in this encounter Care Teams Manufacturing Engineering Technologist Relationship Specialty Start Date End Date Name, MD Basim [address] [place] [address] PCP - General 11/19/19 documented as of this encounter Additional Source Comments The information contained in this document represents components of the legal health record. It is not the complete legal health record.[facility]
--- OUTSIDE RECORDS SUMMARY | 2025-03-08 09:54 | XMS_ITS | Encounter Summary ---
Author Organization [employer] Address [address] [facility] 7 [place] [address] Care Team Providers Care Casino Floor Walker Name Role Phone Name, Basim BOWEN Primary Care Provider [phone] Reason for Visit * Reason Onset Date Comments Nurse Triage 07/01/2024 Encounter Details Date Type Department Care Team ([facility] st Contact Info) Description 07/01/2024 Telephone [facility] MEDICINE [address] [place], [place] [phone] Name, MD Basim [address] [place] [address] Nurse Triage Social History Tobacco Use Types Packs/Day Years [...] encounter Miscellaneous Notes * Telephone Encounter - Cady Sims RN - 07/01/2024 10:39 AM EDT Triage call with [facility] [place] [id number] Otto Pt reports mild headache for last 2 weeks. Pt reports this headache is located on left side but, has encompassed whole head and eyes at this point. Pt reports the headache comes and goes. Pt has taken tylenol/motrin with some effect to relieve pain. Pt denies fall, head injury. Pt has no other sx of fever, stiff neck, cold sx. Pt would like to see provider. ASK apt with [employer]07/03/24 @ 315pm. Pt agrees with this disposition. Unable to verify health insurance due to computer error. Protocol Used: Headache (Adult) Protocol-Based Disposition: See in Office or Video Visit within 3 Days Video visit not offered Positive Triage Questions: * Mild - Moderate headache present > 3 days (72 hours) * New-onset headache and age > 50 years * All higher-acuity triage questions were negative Care Advice Discussed: * Pain Medicines * Cold Pack for Headache * Reasons To Call Back - Severe headache lasts over 2 hours after pain medicine - Headache lasts over 72 hours - Stiff neck occurs (can't touch chin to chest) - You become worse * Telephone Encounter - Yosef Ruddy - 07/01/2024 9:03 AM EDT Symptom: Headache Outcome: Schedule an urgent appointment (within 4 hours) or talk to a nurse or provider soon Reason: Getting worse The caller accepted this outcome. documented in this encounter Plan of Treatment Upcoming Encounters Date Type Department Care Team (Late st Contact Info) Description 03/18/2025 9:15 AM EST Office Visit [facility] MED[facility]INE [address] [place] [address] Name, MD Basim [address] [place] [address] documented as of this encounter Visit Diagnoses Not on filedocumented in this encounter Additional Health Concerns Assessment Noted Time PHQ-9 Depression Total Score: 0 04/24/19 24 9:09 AM EST documented as of this encounter Care Teams Casino Floor Walker Relationship Specialty Start Date End Date NameBasim MD [address] [place] [id number] PCP - General Family Medicine 10/04/15 documented as of this encounter
--- OUTSIDE RECORDS SUMMARY | 2025-03-08 09:54 | XMS_ITS | Encounter Summary ---
Author Organization [employer] Address [address] [facility] 7t [place] [address] Care Team Providers Care Cigar Head Stringer Name Role Phone Name, Basim BOWEN Primary Care Provider [phone] Reason for Visit * Reason Onset Date Comments Med Refill 02/12/2024 Encounter Details Date Type Department Care Team ([facility] st Contact Info) Description 02/12/2024 Telephone [facility] MEDICINE [address] [place], [place] [phone] Name, MD Basim [address] [place] [address] Med Refill Social History Tobacco Use Types [...] encounter Miscellaneous Notes * Telephone Encounter - Rosa M Bonilla LPN - 02/12/2024 8:52 AM EST Medication was sent to [id number] on 10/11/23 #90 with 3 refills. * Telephone Encounter - Madelin Arevalo - 02/12/2024 8:23 AM EST TC from pt requesting medication refill. Medications needing refill : atorvastatin (Lipitor) 40 MG tablet To be sent to: [id number] [place] - [address] documented in this encounter Plan of Treatment Upcoming Encounters Date Type Department Care Team (Late st Contact Info) Description 03/18/2025 9:15 AM EST Office Visit [facility] MEDICINE [address] [place] [address] Name, MD Basim [address] [place] [address] documented as of this encounter Visit Diagnoses Not on filedocumented in this encounter Additional Health Concerns Assessment Noted Time PHQ-9 Depression Total Score: 0 04/24/19 9:09 AM EST documented as of this encounter Care Teams Cigar Head Stringer Relationship Specialty Start Date End Date Name, MD Basim [address] [place] [address] PCP - General Family Medicine 10/04/15 documented as of this encounter
--- OUTSIDE RECORDS SUMMARY | 2025-03-08 09:54 | XMS_ITS | Encounter Summary ---
Author Organization [employer] Address [address] [place] [address] 7 [place] [address] Care Team Providers Care Special Agent Fbi Name Role Phone Name, Basim BOWEN Primary Care Provider [phone] Reason for Visit * Reason Comments Med Refill Encounter Details Date Type Department Care Team ([facility] Contact Info) Description 07/30/2022 Refill [facility] MEDICINE [address] [place] [address] [phone] NameBasim MD [address] [place] [address] [phone] Social History Tobacco Use Types Packs/Day Years Used Date Smoking Tobacco: Never Smokeless Tobacco: Never Alcohol Use Standard Drinks/Week Comments Never 0 (1 standard drink = 0.6 oz pur e alcohol) Depression Answer Date Recorded Patient Health Questionnaire-9 Score 0 02/23/2022 Depression Answer Date Recorded Patient Health Questionnaire-2 Score 0 02/23/2022 Sex and Gender Information Value Date Recorded Sex Assigned at Male 01/08/2022 10:30 AM EDT Legal Sex Male 10:30 AM EDT Gender Identity Male 01/08/2022 10:30 AM EDT Sexual Orientation Straight 01/08/2022 10 :30 AM EDT COVID-19 Exposure Response Date Recorded In the last 10 days, have yo u been in contact with someone who was confirmed or suspected to have Coronavirus/COVID-19? No / Unsure 07/06/2022 9:54 AM EDT documented as of this encounter Plan of Treatment Upcoming Encounters Date Type Department Care Team ([facility] Contact Info) Description 03/18/2025 9:15 AM EST Office Visit [facility] MEDICINE [address] [place] [address] [phone] Name, MD Basim [address] [place] [address] documented as of this encounter Visit Diagnoses Not on filedocumented in this encounter Additional Health Concerns Assessment Noted Time PHQ-9 Depression Total Score: 0 02/24/20 22 9:20 AM EST documented as of this encounter Care Teams Special Agent [employer] Relationship Specialty Start Date End Date Name, MD Basim [address] [place] [address] PCP - General Family Medicine 10/04/15 documented as of this encounter
--- OUTSIDE RECORDS SUMMARY | 2025-03-08 09:54 | XMS_ITS | Encounter Summary ---
Author Organization [facility] Address [address] [facility] [address] [place] [phone] Phone Care Team Providers Care Supervisor Wet Pour Name Role Phone Name, Basim BOWEN Primary Care Provider [phone] Encounter Details Date Type Department Care Team (Latest Contact Info) Description 11/19/2019 Ancillary Orders [facility] [address] [place] [address] [place] [address] Ez Santos, DO [address] [place] [address] NSVT (nonsustained ventricular tachycardia) Social History Tobacco Use Types Packs/Day Years Used Date Smoking Tobacco: Never Assessed Sex and Gender Information Value Date Recorded Sex Assigned at Not on file Legal Sex Male 10:38 PM EDT Gender Identity Not on file Sexual Orientation Not on file documented as of this encounter Plan of Treatment Not on file documented as of this encounter Results * Holter Monitor 24 Hours (11/19/2019 12:27 PM EDT) Anatomical Region Laterality Modality Heart Other Addenda Addendum by Darryl Bean MD on 11/19/2019 1:03 PM EDT 24-hour monitor: The baseline rhythm is sinus with a minimum heart rate of 46, maximum 88, average 60 bpm. The longest pause duration is 1.7 seconds at 6:21 AM. Occasional PACs present. There is an increased frequency of the PVCs, about 35,000 during the 24-hour interval, mainly isolated PVCs with occasional couplets and triplets. There is no diary submitted. There are no patient event markers. Impression: Abnormal 24-hour monitor due to marked increase in frequency of PVCs, about 35,000 during the 24 hours, comprising about 38% of the heartbeats. There is no diary submitted. There are no patient event markers. Narrative Procedure Note Darryl Bean MD - 11/19/2019 24-hour monitor: The baseline rhythm is sinus. The minimum heart rate is55, maximum 99, average 69 bpm. The longest pause duration is 1.44seconds at 3:25 AM, presumably during hours of sleep. There are 4 PACspresent. There are 200 PVCs present. There is no diary submitted. Thereare no patient event markers. Impression: Normal 24-hour monitor, about 200 PVCs during the 24 hours.No diary submitted. No patient event markers. Ez Santos DO [facility] ORDERABLE S Edited Result - Final documented in this encounter Visit Diagnoses Diagnosis NSVT (nonsustained ventricular tachycardia) NSVT (nonsustained ventricular tachycardia) documented in this encounter Care Teams Supervisor Wet Pour Relationship Specialty Start Date End Date Name, MD Basim [address] [place] [id number] PCP - General 11/19/19 documented as of this encounter Additional Source Comments The information contained in this document represents components of the legal health record. It is not the complete legal health record.[facility]
== END 2025-03-08 09:26 | disposition home or self-care (01) ==
LOC: HO.HMGCX 09:25
PROVIDERS: PCP Internal Medicine Geriatric Medicine; Visit Provider Nurse Practitioner Family
DX: R10.13 Epigastric pain (principal)
CPT/HCPCS: 76700

== ENCOUNTER → 2025-03-08 09:38 | Outpatient (BNV) | payer MEDICARE, SELFPAY | PROVIDERS: PCP Internal Medicine Geriatric Medicine; Visit Provider Radiology Diagnostic Radiology | DX: N28.1 Cyst of kidney, acquired (principal) | CPT/HCPCS: 76700 ==